=== PATIENT | female | born 1965 | race Caucasian/White ===

== ENCOUNTER 2024-12-05 14:52 | Emergency (ER) | payer BC, OTHER ==
[~2024-12-05] VITALS: Ht 157.5 cm; Wt 102.0 kg
[2024-12-05] MEDS: HYDROcodone-ACET 10/325MG TAB PO ONE (15:15)
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
[2024-12-05 16:37] VITALS: TEMP 98.1
[2024-12-05] MEDS ORDERED: IBUP-1455 PO (17:30)
[2024-12-05] MEDS ORDERED: HYDR-4902 PO (17:30)
[2024-12-05 18:07] VITALS: PULSE 91; RESP 20; O2SAT 96
[2024-12-05 18:14] VITALS: BP 132/74; PULSE 90; RESP 18; O2SAT 92
== END 2024-12-05 18:15 | disposition home or self-care (01) ==
LOC: ER 14:52 → EDBD 14:52 → ER 18:15
DX: S16.1XXA Strain of muscle, fascia and tendon at neck level, initial encounter (principal); S39.012A Strain of muscle, fascia and tendon of lower back, initial encounter; R07.9 Chest pain, unspecified; I10 Essential (primary) hypertension; V89.2XXA Person injured in unspecified motor-vehicle accident, traffic, initial encounter; Y93.I9 Activity, other involving external motion; Y92.488 Other paved roadways as the place of occurrence of the external cause; Y99.8 Other external cause status
CPT/HCPCS: 71046; 72040; 72070